=== PATIENT | female | born 1960 | race Caucasian/White ===

== ENCOUNTER 2018-12-13 14:55 | Inpatient (IN) | payer OTHER ==
[~2018-12-13] VITALS: Ht 27.9 cm; Wt 5.0 kg
[2018-12-13] MEDS ORDERED: ORTHO TRI-CYCL1 EAC1 (15:08)
== END 2018-12-16 16:27 | disposition home or self-care (01) | DRG 392 ==
LOC: ER 14:55 → SURH 12-14 09:58
PROVIDERS: ADMIT Internal Medicine
DX: K57.32 Diverticulitis of large intestine without perforation or abscess without bleeding (principal)